=== PATIENT | female | born 1950 | race Caucasian/White ===

== ENCOUNTER 2023-11-06 14:55 | Emergency (ER) | payer OTHER ==
[2023-11-06 15:12] VITALS: RESP 18; BMI 26.8
[2023-11-06] MEDS ORDERED: ACETAMINOPHEN INJECTION 100 ML IVPB ONE (16:25)
[2023-11-06] MEDS ORDERED: DIPHTH,PERTUSS(ACELL),TET 0.5 ML DISP.SYRIN IM ONE (16:25)
[2023-11-06] MEDS: DIPHTH,PERTUSS(ACELL),TET 0.5 ML DISP.SYRIN IM ONE (16:40)
[2023-11-06] MEDS: ACETAMINOPHEN 1000 MG/100 ML BAG IVPB ONE (16:50)
[2023-11-06 17:28] LABS: BASO % 1.2 % (0-2.0); HEMOGLOBIN 10.3 GM/dL (10.7-15.3); LYMPH % 13.5 % (8-40); MCH 30.5 pg (25.7-33.7); MCHC 34.2 g/dl (32.0-36.0); MEAN CELL VOLUME 89.2 fl (80-96); MONO % 7.9 % (3.8-10.2); NEUT % 73.4 % (42.8-82.8); PLATELET COUNT 326 10^3/uL (134-434); RBC 3.37 M/mm3 (3.60-5.2); RDW 14.9 % (11.6-15.6); WHITE BLOOD COUNT 8.3 K/mm3 (4.0-10.0)
[2023-11-06 17:30] LABS: POTASSIUM 4.7 mmol/L (3.5-5.1)
[2023-11-06 17:32] LABS: CALCIUM 8.3 mg/dL (8.5-10.1)
[2023-11-06 17:33] LABS: BLOOD UREA NITROGEN 27.8 mg/dL (7-18)
[2023-11-06 17:35] LABS: CREATININE 1.5 mg/dL (0.55-1.3)
[2023-11-06 17:37] LABS: BILIRUBIN,TOTAL 0.2 mg/dL (0.2-1); TOT PROT 6.8 g/dl (6.4-8.2)
[2023-11-06] MEDS ORDERED: LIDOCAINE HCL 1%, 10 MG/ML (20ML VIAL) ONE (17:55)
[2023-11-06 19:38] LABS: PH,URINE 6.5 (5.0-8.0); URINE APPEARANCE CLEAR; URINE BILIRUBIN NEGATIVE (NEGATIVE); URINE COLOR YELLOW; URINE GLUCOSE (UA) NEGATIVE (NEGATIVE); URINE KETONE NEGATIVE (NEGATIVE); URINE LEUK ESTERASE NEGATIVE (NEGATIVE); URINE NITRITE NEGATIVE (NEGATIVE); URINE PROTEIN NEGATIVE (NEGATIVE); URINE UROBILINOGEN 0.2 mg/dL (0.2-1.0)
[2023-11-06] MEDS ORDERED: AMOX TR/POT CLAV 875MG/125MG TABLETS (FP) ONE (19:56)
[2023-11-06] MEDS ORDERED: AZITHROMYCIN 500 MG TABLET ONE (19:56)
[2023-11-06] MEDS: AMOX TR/POT CLAV 875MG/125MG TABLETS (FP) PO ONE (20:06)
[2023-11-06] MEDS: LIDOCAINE HCL 1%, 10 MG/ML (50 mL VIAL) SQ ONE (20:06)
[2023-11-06] MEDS: AZITHROMYCIN 250 MG TABLET PO ONE (20:06)
[2023-11-07 03:35] VITALS: BP 130/72; PULSE 80; TEMP 98.1
== END 2023-11-07 03:36 | disposition home or self-care (01) ==
LOC: JER 14:55
PROC: 3E033NZ Introduction of Analgesics, Hypnotics, Sedatives into Peripheral Vein, Percutaneous Approach (ICD-10-PCS; principal; 2023-11-06)
PROC: 3E0234Z Introduction of Serum, Toxoid and Vaccine into Muscle, Percutaneous Approach (ICD-10-PCS; 2023-11-06)
DX: S01.112A Laceration without foreign body of left eyelid and periocular area, initial encounter (principal); S09.90XA Unspecified injury of head, initial encounter; W01.0XXA Fall on same level from slipping, tripping and stumbling without subsequent striking against object, initial encounter; Z23 Encounter for immunization
CPT/HCPCS: 36415; 70450-TC; 71045-TC-FY; 72125-TC; 80053; 81003; 84484; 85025; 87086; 90471; 90715; 93005; 93010; 96374; 99285-25; J0131